=== PATIENT | female | born 1995 | race Hispanic/Latino ===

== ENCOUNTER 2018-12-21 15:35 | Emergency (ER) | payer SELFPAY ==
[~2018-12-21] VITALS: Ht 152.4 cm; Wt 64.4 kg
--- OUTSIDE RECORDS SUMMARY | 2018-12-21 15:37 | XMS REPORT ---
Author Author Admin, [facility] Organization Unknown Address Unknown Phone Unavailable PROBLEMS Condition Status Date Provider Notes Abnormal uterine bleeding active Raya Colon Encounter for other general counseling and advice on contraception active Raya Colon ENCOUNTERS Date Type Provider Location Encounter Diagnosis - Ambulatory Encounter Raya Colon [facility] UNK - Ambulatory Encounter [facility] UNK - Ambulatory Encounter Raya Colon Pratima I [place] [facility] Encounter for other general counseling and advice on contraceptionAbnormal uterine bleeding VITAL SIGNS No Information Available Allergies No Known Allergy Information REASON FOR REFERRAL No Information Available RESULTS No Information Available HISTORY OF IMMUNIZATIONS No Information Available Medications No Known Medication Information SOCIAL HISTORY Date Observation Value Provider " sexual orientation Heterosexual Pr[place]ima I [place] " is there any chance that you could be ? No Pratima I [place] " smoking status never smoker Partima I [place] FUNCTIONAL STATUS No Information Available MENTAL STATUS Date Observation Value Provider assessment of judgment and insight E&M intact Raya Colon " mental status examination: orientation E&M oriented to time, place, and person Raya Colon " assessment of mood and affect E&M no depression, anxiety, or agitation Raya Colon " Generalized Anxiety Disorder Questionnaire - Question 2 0 Pratima I [place] " Generalized Anxiety Disorder Questionnaire - Question 1 0 Pratima I [place] MEDICAL EQUIPMENT No Information Available FAMILY HISTORY No Information Available INSURANCE PROVIDERS Payer name Policy type / Coverage type Covered democrat ID Sliding Fee - Cat 1 Commercial insurance [employer] [id number] [employer] [place] Women(HTW) Medicaid [id number] ADVANCE DIRECTIVES No Information Available TREATMENT PLAN Date Name Vaginitis/Vaginosis, DNA Probe (Affirm) ([facility]) Chlamydia/GC Amplification (Cervical) New Patient Detailed - [id number] HISTORY OF PROCEDURES No Information Available GOALS No Information Available HEALTH CONCERNS No Information Available
--- OUTSIDE RECORDS SUMMARY | 2018-12-21 15:37 | XMS REPORT ---
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 Allergies, Adverse Reactions, Alerts This patient has no known allergies or adverse reactions. Medications This patient has no known medications. Encounters Start Date/Time End Date/Time Encounter Type Admission Type Attending [facility] Care Department Encounter ID 2018-05-29 14:29:45 2018-05-29 14:29:45 Outpatient [facility] [id number] 2018-05-22 15:04:18 2018-05-22 15:04:18 Outpatient [facility] [id number] 2018-03-16 00:00:00 2018-03-16 00:00:00 Outpatient [facility] [id number] 2018-02-20 15:17:58 2018-02-20 15:17:58 Outpatient [facility] [id number] 2017-12-19 00:00:00 2017-12-19 00:00:00 Outpatient [facility] [id number] 2017-12-13 08:15:51 2017-12-13 08:15:51 Outpatient [facility] [id number] 2017-10-05 00:00:00 2017-10-05 00:00:00 Outpatient [facility] [id number] 2017-04-26 12:33:22 2017-04-26 12:33:22 Outpatient [facility] [id number] 2017-04-18 13:42:15 2017-04-18 13:42:15 Outpatient [facility] [id number] 2017-04-14 11:29:40 2017-04-14 11:29:40 Outpatient [facility] [id number] 2017-04-14 00:00:00 2017-04-14 00:00:00 Outpatient [facility] [id number] 2017-04-04 09:35:16 2017-04-04 09:35:16 Outpatient [facility] [id number] 2017-03-16 10:21:26 2017-03-16 10:21:26 Outpatient [facility] [id number] 2016-11-12 00:00:00 2016-11-12 00:00:00 Outpatient [facility] [id number]
[2018-12-21] MEDS ORDERED: CYCLOBENZAPRINE HCL 10 MG TAB PO ONE (15:45)
[2018-12-21] MEDS ORDERED: TRAMADOL HCL 50 MG TAB PO ONE (15:45)
[2018-12-21 17:07] LABS: BILIRUBIN,URINE NEGATIVE (NEGATIVE); KETONES,URINE 1+ (NEGATIVE); LEUKOCYTE ESTERASE ,URINE NEGATIVE (NEGATIVE); NITRITE,URINE NEGATIVE (NEGATIVE); PROTEIN,URINE DIPSTICK NEGATIVE (NEGATIVE); URINE UROBILINOGEN 0.2 mg/dL (0.2 - 1)
[2018-12-21 17:09] LABS: PREGNANCY TEST, URINE NEGATIVE (NEGATIVE)
[2018-12-21 17:11] LABS: CLARITY,URINE SL CLOUDY (CLEAR); COLOR,URINE YELLOW (YELLOW)
[2018-12-21 17:20] LABS: BACTERIA,URINE MODERATE /HPF; EPITHELIAL CELLS,URINE MODERATE /LPF; MUCUS,URINE FEW (RARE); WBC,URINE (MAN) 0-5 /HPF (0-5)
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
[2018-12-21 18:51] VITALS: BP 107/70
== END 2018-12-21 18:59 | disposition home or self-care (01) ==
LOC: ER 15:35
DX: S06.890A Other specified intracranial injury without loss of consciousness, initial encounter (principal); S39.012A Strain of muscle, fascia and tendon of lower back, initial encounter; V43.52XA Car driver injured in collision with other type car in traffic accident, initial encounter; Y92.488 Other paved roadways as the place of occurrence of the external cause
CPT/HCPCS: 70450; 72110; 72125; 81001; 81025; 99283